=== PATIENT | male | born 1960 | race Caucasian/White ===

== ENCOUNTER 2018-01-08 11:24 | Emergency (ER) | payer MEDICAID ==
[~2018-01-08] VITALS: Ht 167.6 cm; Wt 74.2 kg
[~2018-01-08 11:24] MED LIST: ASPI-1264 PO; BUPR-47 PO; CALC600T18 PO; CLON-527 PO; CLOP75TA35 PO; ERGO500014 PO; EZET10TA13 PO; NIA500ERT PO; NORCO10T PO; OMEP-84 PO; SIMV10TA2 PO; TEG100T PO
[2018-01-08 11:48] VITALS: BP 140/76
== END 2018-01-08 13:59 | disposition home or self-care (01) ==
LOC: ER 11:24
DX: I73.9 Peripheral vascular disease, unspecified (principal); I10 Essential (primary) hypertension; E78.00 Pure hypercholesterolemia, unspecified; E11.51 Type 2 diabetes mellitus with diabetic peripheral angiopathy without gangrene; K21.9 Gastro-esophageal reflux disease without esophagitis; Z86.718 Personal history of other venous thrombosis and embolism; Z86.73 Personal history of transient ischemic attack (TIA), and cerebral infarction without residual deficits; Z88.5 Allergy status to narcotic agent; Z79.82 Long term (current) use of aspirin; Z79.02 Long term (current) use of antithrombotics/antiplatelets; Z79.899 Other long term (current) drug therapy; Z98.890 Other specified postprocedural states; Z60.2 Problems related to living alone
CPT/HCPCS: 99281

== ENCOUNTER 2019-07-13 20:19 | Emergency (ER) | payer MEDICAID ==
[~2019-07-13] VITALS: Ht 167.6 cm; Wt 81.0 kg
[~2019-07-13 20:19] MED LIST changes: -EZET10TA13 PO; +ZET10T PO
[2019-07-13] MEDS ORDERED: CYCL-1 PO (23:23)
[2019-07-13] MEDS ORDERED: HYDROcodone/acetaminophen 5mg/325mg tablet PO ONE (23:25)
[2019-07-13] MEDS ORDERED: ketorolac trometh inj. 60 MG/2 ML VIAL IM ONE (23:25)
[2019-07-13] MEDS ORDERED: orphenadrine citrate 60mg/2ml inj. IM ONE (23:25)
[2019-07-14 00:05] VITALS: BP 145/75
== END 2019-07-14 00:06 | disposition home or self-care (01) ==
LOC: ER 20:20
DX: M54.41 Lumbago with sciatica, right side (principal); M54.42 Lumbago with sciatica, left side; G89.29 Other chronic pain; M62.830 Muscle spasm of back; E78.00 Pure hypercholesterolemia, unspecified; I10 Essential (primary) hypertension; K21.9 Gastro-esophageal reflux disease without esophagitis; E11.9 Type 2 diabetes mellitus without complications; Z86.73 Personal history of transient ischemic attack (TIA), and cerebral infarction without residual deficits; Z86.718 Personal history of other venous thrombosis and embolism; Z95.5 Presence of coronary angioplasty implant and graft; Z98.890 Other specified postprocedural states; Z88.5 Allergy status to narcotic agent; Z79.82 Long term (current) use of aspirin; Z79.899 Other long term (current) drug therapy
CPT/HCPCS: 72100; 96372; 99283; J1885; J2360

== ENCOUNTER 2023-10-21 13:21 | Inpatient (IN) | payer MEDICAID ==
[~2023-10-21] VITALS: Ht 167.6 cm; Wt 80.5 kg
[~2023-10-21 13:21] MED LIST changes: +CLOP75TA34 PO; -CLOP75TA35 PO; +CYCL-1 PO; +EZET10TA7 PO; +SIMV-341 PO; -SIMV10TA2 PO; -ZET10T PO
[2023-10-21 14:41] LABS: BASOPHILS % (AUTO) 0.5 % (0-1); EOSINOPHILS # (AUTO) 0.3 X10'3 (0-0.9); EOSINOPHILS % (AUTO) 4.4 % (0-6); HEMATOCRIT 45.4 % (42.0-52.0); HEMOGLOBIN 15.2 g/dl (14.0-17.9); LYMPHOCYTES # (AUTO) 1.2 X10'3 (1.1-4.8); MEAN CORPUSCULAR HEMOGLOBIN 31.6 PG (27.0-31.0); MEAN CORPUSCULAR HGB CONC 33.5 g/dL (33.0-36.5); MEAN CORPUSCULAR VOLUME 94.3 FL (78-98); MEAN PLATELET VOLUME 8.1 FL (7.4-10.4); MONOCYTES # (AUTO) 0.3 X10'3 (0-0.9); MONOCYTES % (AUTO) 5.7 % (2-12); NEUTROPHILS # (AUTO) 4.1 X10'3 (1.8-7.7); NEUTROPHILS % (AUTO) 69.4 % (42-75); PLATELET COUNT 223 X10'3 (140-440); RED BLOOD COUNT 4.81 X10'6 (4.70-6.10); RED CELL DISTRIBUTION WIDTH 13.4 % (11.5-14.5); WHITE BLOOD COUNT 5.9 X10'3 (4.5-11.0)
[2023-10-21 14:46] LABS: APTT 25 SECONDS (22-32)
[2023-10-21 14:55] LABS: ETHANOL < 10 MG/DL (<10); MAGNESIUM 2.5 MG/DL (1.5-2.4); PRO BRAIN NATRIURETIC PEPTIDE 235 PG/ML (0-125)
[2023-10-21 16:45] LABS: ALANINE AMINOTRANSFERASE 23 U/L (12-78); ALBUMIN 4.3 G/DL (3.4-5.0); ALBUMIN/GLOBULIN RATIO 1.1 (1.1-1.5); ALKALINE PHOSPHATASE 74 IU/L (46-116); ANION GAP 13 (8-16); ASPARTATE AMINO TRANSFERASE 36 U/L (10-37); BILIRUBIN,TOTAL 1.2 MG/DL (0.1-1.0); BLOOD UREA NITROGEN 19 MG/DL (7-18); BUN/CREATININE RATIO 14.5 (10.0-20.0); CALCIUM 9.4 MG/DL (8.5-10.1); CHLORIDE 101 MMOL/L (99-107); CREATINE KINASE 233 U/L (39-308); CREATININE 1.31 MG/DL (0.60-1.10); GLUCOSE 82 MG/DL (70-104); POTASSIUM 4.2 MMOL/L (3.5-5.1); SODIUM 140 MMOL/L (135-145); TOTAL CARBON DIOXIDE 26.1 MMOL/L (24-32); TOTAL PROTEIN 8.1 G/DL (6.4-8.2); eCRCL 53 ML/MIN; eGFR 56 ML/MIN
[2023-10-21] MEDS ORDERED: normal saline 1000ML IV soln IVB ONE (17:45)
[2023-10-21] MEDS ORDERED: TETanus/Pertussis (Acell)/Diphther VAC/PF (Tdap-Adult) 0.5ml syringe IMVAC ONE (17:55)
[2023-10-21 18:38] LABS: BILIRUBIN,URINE SMALL (Neg); CLARITY,URINE CLEAR (Clear); COLOR,URINE AMBER (Yellow); GLUCOSE, URINE NEGATIVE (Neg); KETONES,URINE 15 mg/dl (Neg); LEUKOCYTE ESTERASE ,URINE NEGATIVE (Neg); NITRITES, URINE NEGATIVE (Neg); OCCULT BLOOD,URINE SMALL (Neg); PH,URINE 5.5 (4.8-8.0); PROTEIN,URINE 100 mg/dl (Neg)
[2023-10-21 18:39] LABS: UA COLLECTION TYPE CLN CATCH MIDSTREAM
[2023-10-21 18:51] LABS: MUCUS STRANDS FEW /LPF (Neg); SQUAMOUS EPITHELIAL CELL,UR NONE SEEN /LPF (FEW)
[2023-10-21 18:53] LABS: BACTERIA,URINE FEW /HPF (Neg); RBC,URINE 0-2 /HPF (0-2); WBC,URINE 0-4 /HPF (0-4)
[2023-10-21 18:57] LABS: URINE AMPHETAMINE SCREEN NEGATIVE (Neg); URINE BARBITUATE SCREEN NEGATIVE (Neg); URINE BENZODIAZEPINES SCREEN POSITIVE (Neg); URINE CANNABINOID SCREEN POSITIVE (Neg); URINE COCAINE SCREEN NEGATIVE (Neg); URINE METHADONE SCREEN NEGATIVE (Neg); URINE OPIATE SCREEN NEGATIVE (Neg); URINE PHENCYCLIDINE SCREEN NEGATIVE (Neg)
[2023-10-21] MEDS ORDERED: temazepam 15mg capsule PO PRN (21:00)
[2023-10-21] MEDS ORDERED: ondansetron/PF 4mg/2ml inj IV PRN (22:00)
[2023-10-21] MEDS ORDERED: diphenhydrAMINE 25mg capsule PO PRN (22:00)
[2023-10-21] MEDS ORDERED: acetaminophen 325mg tablet PO PRN ×2 (22:00)
[2023-10-21] MEDS ORDERED: magnesium hydroxide 30ml (MOM) UD suspension PO PRN (22:00)
[2023-10-21] MEDS ORDERED: bisacodyl 10mg suppository rectal RC PRN (22:00)
[2023-10-21] MEDS ORDERED: HYDROcodone/acetaminophen 5mg/325mg tablet PO PRN (22:00)
[2023-10-21] MEDS ORDERED: mag hydrox/Alum hydrox/simeth 30ml oral suspension PO PRN (22:00)
[2023-10-21] MEDS ORDERED: diphenhydrAMINE 50 mg/ml inj IV PRN (22:00)
[2023-10-21 22:46] LABS: HEMOGLOBIN A1C 5.4 % (4.5-6.2)
[2023-10-21 23:01] LABS: LIPASE 35 U/L (16-77); PHOSPHORUS 3.7 MG/DL (2.3-4.5); THYROID STIMULATING HORMONE 1.68 ulU/ml (0.34-4.50)
[2023-10-21 23:03] LABS: CARBAMAZEPINE (TEGRETOL) < 0.5 UG/ML (4.0-12.0)
[2023-10-21 23:56] LABS: APTT 25 SECONDS (22-32); D-DIMER 0.51 MG/L FEU (0-0.50); PROTHROMBIN TIME 10.9 SECONDS (9.0-12.0)
[2023-10-22] MEDS: normal saline 1000ml 1,000 ML IV SCH ×4 (00:15→20:35)
[2023-10-22 00:51] VITALS: RESP 18; O2SAT 97
[2023-10-22 01:00] VITALS: BP 130/53; PULSE 58; RESP 13; TEMP 97.5; O2SAT 97
[2023-10-22 06:00] VITALS: BP 109/94; PULSE 50; RESP 18; TEMP 97.2; O2SAT 94
[2023-10-22 06:02] LABS: BASOPHILS % (AUTO) 0.6 % (0-1); EOSINOPHILS # (AUTO) 0.3 X10'3 (0-0.9); EOSINOPHILS % (AUTO) 4.7 % (0-6); HEMATOCRIT 38.2 % (42.0-52.0); LYMPHOCYTES # (AUTO) 2.1 X10'3 (1.1-4.8); MEAN CORPUSCULAR HEMOGLOBIN 31.7 PG (27.0-31.0); MEAN CORPUSCULAR HGB CONC 34.1 g/dL (33.0-36.5); MEAN CORPUSCULAR VOLUME 93.1 FL (78-98); MONOCYTES # (AUTO) 0.6 X10'3 (0-0.9); NEUTROPHILS # (AUTO) 3.9 X10'3 (1.8-7.7); NEUTROPHILS % (AUTO) 55.7 % (42-75); PLATELET COUNT 193 X10'3 (140-440); RED CELL DISTRIBUTION WIDTH 12.7 % (11.5-14.5)
[2023-10-22 06:09] LABS: ALANINE AMINOTRANSFERASE 18 U/L (12-78); ALBUMIN 3.2 G/DL (3.4-5.0); ALBUMIN/GLOBULIN RATIO 1.1 (1.1-1.5); ALKALINE PHOSPHATASE 55 IU/L (46-116); ANION GAP 9 (8-16); ASPARTATE AMINO TRANSFERASE 27 U/L (10-37); BILIRUBIN,TOTAL 0.8 MG/DL (0.1-1.0); BLOOD UREA NITROGEN 21 MG/DL (7-18); BUN/CREATININE RATIO 18.8 (10.0-20.0); CALCIUM 8.3 MG/DL (8.5-10.1); CHLORIDE 104 MMOL/L (99-107); CREATININE 1.12 MG/DL (0.60-1.10); GLUCOSE 102 MG/DL (70-104); POTASSIUM 3.6 MMOL/L (3.5-5.1); SODIUM 139 MMOL/L (135-145); TOTAL CARBON DIOXIDE 26.1 MMOL/L (24-32); TOTAL PROTEIN 6.2 G/DL (6.4-8.2); eCRCL 63 ML/MIN; eGFR 67 ML/MIN
[2023-10-22 06:14] LABS: CHOL/HDL RATIO 2.3 (0.00-4.99); CHOLESTEROL 93 MG/DL (0-200); HDL CHOLESTEROL 40 MG/DL (35-60); LDL CHOLESTEROL 33 MG/DL (50-100); TRIGLYCERIDES 154 MG/DL (20-135)
[2023-10-22] MEDS: docusate sod 100mg capsule PO SCH ×2 (07:21→20:21)
[2023-10-22] MEDS: heparin, porcine 5000 units/ml vial SQ SCH ×2 (07:22→20:21)
[2023-10-22 10:00] VITALS: BP 120/66; PULSE 52; RESP 14; TEMP 97.7; O2SAT 96
[2023-10-22] MEDS ORDERED: pneumococcal 23-VAL P-sac vacc 25 mcg/0.5ml vial IMVAC ONE (10:00)
[2023-10-22] MEDS ORDERED: LOSA25TA41 PO (12:25)
[2023-10-22] MEDS ORDERED: ASPI-1265 PO (12:26)
[2023-10-22] MEDS ORDERED: GABA-530 PO (12:29)
[2023-10-22 18:40] VITALS: BP 124/55; PULSE 67; RESP 15; TEMP 98.2; O2SAT 98
[2023-10-22 22:00] VITALS: BP 171/92; PULSE 58; RESP 16; TEMP 97.7; O2SAT 99
[2023-10-22] MEDS: HYDROcodone/acetaminophen 10/325mg tab PO PRN (22:50)
[2023-10-23 06:00] VITALS: BP 118/55; PULSE 54; RESP 16; TEMP 97.8
[2023-10-23 06:26] LABS: BASOPHILS % (AUTO) 0.8 % (0-1); EOSINOPHILS # (AUTO) 0.3 X10'3 (0-0.9); HEMATOCRIT 37.5 % (42.0-52.0); HEMOGLOBIN 12.7 g/dl (14.0-17.9); LYMPHOCYTES # (AUTO) 1.8 X10'3 (1.1-4.8); LYMPHOCYTES % (AUTO) 32.2 % (21-51); MEAN CORPUSCULAR HEMOGLOBIN 31.7 PG (27.0-31.0); MEAN CORPUSCULAR VOLUME 93.2 FL (78-98); MEAN PLATELET VOLUME 7.6 FL (7.4-10.4); MONOCYTES # (AUTO) 0.5 X10'3 (0-0.9); MONOCYTES % (AUTO) 8.1 % (2-12); NEUTROPHILS % (AUTO) 53.9 % (42-75); PLATELET COUNT 172 X10'3 (140-440); RED BLOOD COUNT 4.02 X10'6 (4.70-6.10); RED CELL DISTRIBUTION WIDTH 12.8 % (11.5-14.5); WHITE BLOOD COUNT 5.6 X10'3 (4.5-11.0)
[2023-10-23 06:38] LABS: ALANINE AMINOTRANSFERASE 15 U/L (12-78); ALBUMIN 3.2 G/DL (3.4-5.0); ALBUMIN/GLOBULIN RATIO 1.1 (1.1-1.5); ALKALINE PHOSPHATASE 52 IU/L (46-116); ANION GAP 9 (8-16); ASPARTATE AMINO TRANSFERASE 27 U/L (10-37); BILIRUBIN,TOTAL 0.9 MG/DL (0.1-1.0); BLOOD UREA NITROGEN 14 MG/DL (7-18); BUN/CREATININE RATIO 13.9 (10.0-20.0); CALCIUM 8.6 MG/DL (8.5-10.1); CHLORIDE 105 MMOL/L (99-107); CREATININE 1.01 MG/DL (0.60-1.10); GLUCOSE 75 MG/DL (70-104); SODIUM 139 MMOL/L (135-145); TOTAL CARBON DIOXIDE 25.1 MMOL/L (24-32); TOTAL PROTEIN 6.1 G/DL (6.4-8.2); eCRCL 69 ML/MIN; eGFR 75 ML/MIN
[2023-10-23 08:00] VITALS: RESP 16; O2SAT 98
[2023-10-23] MEDS: docusate sod 100mg capsule PO SCH ×2 (08:08→20:18)
[2023-10-23] MEDS: heparin, porcine 5000 units/ml vial SQ SCH ×2 (08:08→20:21)
[2023-10-23] MEDS: HYDROcodone/acetaminophen 10/325mg tab PO PRN ×2 (10:05→16:06)
[2023-10-23] MEDS: normal saline 1000ml 1,000 ML IV SCH ×2 (12:57→23:24)
[2023-10-23] MEDS ORDERED: cyclobenzaprine 10mg tablet PO PRN (13:55)
[2023-10-23] MEDS ORDERED: HYDROcodone/acetaminophen 10/325mg tab PO PRN (13:55)
[2023-10-23 14:57] LABS: BASOPHILS % (AUTO) 0.5 % (0-1); EOSINOPHILS # (AUTO) 0.1 X10'3 (0-0.9); EOSINOPHILS % (AUTO) 1.8 % (0-6); HEMATOCRIT 40.7 % (42.0-52.0); HEMOGLOBIN 13.7 g/dl (14.0-17.9); LYMPHOCYTES # (AUTO) 1.1 X10'3 (1.1-4.8); LYMPHOCYTES % (AUTO) 16.8 % (21-51); MEAN CORPUSCULAR HEMOGLOBIN 31.4 PG (27.0-31.0); MEAN CORPUSCULAR HGB CONC 33.7 g/dL (33.0-36.5); MEAN CORPUSCULAR VOLUME 93.2 FL (78-98); MEAN PLATELET VOLUME 7.5 FL (7.4-10.4); MONOCYTES # (AUTO) 0.4 X10'3 (0-0.9); MONOCYTES % (AUTO) 5.9 % (2-12); PLATELET COUNT 181 X10'3 (140-440); RED BLOOD COUNT 4.37 X10'6 (4.70-6.10); RED CELL DISTRIBUTION WIDTH 12.7 % (11.5-14.5); WHITE BLOOD COUNT 6.7 X10'3 (4.5-11.0)
[2023-10-23] MEDS: gabapentin 100mg capsule PO SCH ×2 (16:05→23:25)
[2023-10-23] MEDS ORDERED: ondansetron 4mg rapidly disintigrating tab PO PRN (16:15)
[2023-10-23 18:00] VITALS: BP 163/60; PULSE 55; RESP 20; TEMP 97.5; O2SAT 96
[2023-10-23] MEDS: clonazePAM 1mg tablet PO SCH (20:16)
[2023-10-23] MEDS ORDERED: carBAMazepine 100mg chewable tablet PO SCH (21:00)
[2023-10-23] MEDS ORDERED: aspirin 81mg tab.chew PO SCH (21:00)
[2023-10-23] MEDS ORDERED: atorvastatin 10mg tablet PO SCH (21:00)
[2023-10-23 22:00] VITALS: BP 135/60; PULSE 54; RESP 16; TEMP 98.3; O2SAT 97
[2023-10-24 06:12] LABS: BASOPHILS % (AUTO) 0.5 % (0-1); EOSINOPHILS # (AUTO) 0.3 X10'3 (0-0.9); EOSINOPHILS % (AUTO) 5.4 % (0-6); HEMATOCRIT 36.8 % (42.0-52.0); HEMOGLOBIN 12.6 g/dl (14.0-17.9); LYMPHOCYTES # (AUTO) 1.8 X10'3 (1.1-4.8); LYMPHOCYTES % (AUTO) 35.2 % (21-51); MEAN CORPUSCULAR HEMOGLOBIN 31.8 PG (27.0-31.0); MEAN CORPUSCULAR HGB CONC 34.3 g/dL (33.0-36.5); MEAN CORPUSCULAR VOLUME 92.8 FL (78-98); MEAN PLATELET VOLUME 7.6 FL (7.4-10.4); MONOCYTES # (AUTO) 0.5 X10'3 (0-0.9); MONOCYTES % (AUTO) 9.8 % (2-12); NEUTROPHILS # (AUTO) 2.5 X10'3 (1.8-7.7); NEUTROPHILS % (AUTO) 49.1 % (42-75); PLATELET COUNT 177 X10'3 (140-440); RED BLOOD COUNT 3.97 X10'6 (4.70-6.10); RED CELL DISTRIBUTION WIDTH 13.2 % (11.5-14.5)
[2023-10-24 06:32] LABS: ALANINE AMINOTRANSFERASE 17 U/L (12-78); ALBUMIN 3.3 G/DL (3.4-5.0); ALBUMIN/GLOBULIN RATIO 1.1 (1.1-1.5); ALKALINE PHOSPHATASE 51 IU/L (46-116); ANION GAP 8 (8-16); ASPARTATE AMINO TRANSFERASE 31 U/L (10-37); BILIRUBIN,TOTAL 0.7 MG/DL (0.1-1.0); BLOOD UREA NITROGEN 11 MG/DL (7-18); BUN/CREATININE RATIO 11.5 (10.0-20.0); CALCIUM 8.6 MG/DL (8.5-10.1); CARBAMAZEPINE (TEGRETOL) < 0.5 UG/ML (4.0-12.0); CHLORIDE 106 MMOL/L (99-107); CREATININE 0.96 MG/DL (0.60-1.10); GLUCOSE 88 MG/DL (70-104); POTASSIUM 3.9 MMOL/L (3.5-5.1); SODIUM 140 MMOL/L (135-145); TOTAL CARBON DIOXIDE 26.5 MMOL/L (24-32); TOTAL PROTEIN 6.3 G/DL (6.4-8.2); eCRCL 73 ML/MIN; eGFR 80 ML/MIN
[2023-10-24 06:47] VITALS: BP 128/66; PULSE 60; RESP 16; TEMP 97.7; O2SAT 97
[2023-10-24] MEDS ORDERED: pantoprazole 40mg Tablet.DR PO SCH (07:30)
[2023-10-24 08:00] VITALS: RESP 17; O2SAT 98
[2023-10-24] MEDS ORDERED: ezetimibe 10mg tablet PO SCH (08:00)
[2023-10-24] MEDS ORDERED: niacin 500mg ER (Niaspan) tablet PO SCH (08:00)
[2023-10-24] MEDS: docusate sod 100mg capsule PO SCH (08:00)
[2023-10-24] MEDS ORDERED: calcium carbonate 500mg tablet PO SCH (08:00)
[2023-10-24] MEDS ORDERED: losartan 25mg tablet PO SCH (08:00)
[2023-10-24] MEDS ORDERED: aspirin 325mg tablet PO SCH (08:00)
[2023-10-24] MEDS ORDERED: clopidogrel 75mg tablet PO SCH (08:00)
[2023-10-24] MEDS ORDERED: buPROPion SR 150mg tablet PO SCH (08:00)
[2023-10-24] MEDS: heparin, porcine 5000 units/ml vial SQ SCH (08:00)
[2023-10-24] MEDS: clonazePAM 1mg tablet PO SCH (09:28)
[2023-10-24] MEDS: HYDROcodone/acetaminophen 10/325mg tab PO PRN (09:28)
[2023-10-24] MEDS: normal saline 1000ml 1,000 ML IV SCH (10:00)
[2023-10-24 10:30] VITALS: BP 139/70; PULSE 62; RESP 18; TEMP 97.3; O2SAT 97
[2023-10-24] MEDS: gabapentin 100mg capsule PO SCH ×2 (13:09→16:00)
== END 2023-10-24 18:35 | disposition home or self-care (01) | DRG 469 ==
LOC: ER 13:22 → ED HOLD 22:08 → ORTHO 4S 10-22 00:07
PROVIDERS: ADMIT Family Medicine; ATTEND Internal Medicine
DX: N17.9 Acute kidney failure, unspecified (principal); I50.33 Acute on chronic diastolic (congestive) heart failure; E11.51 Type 2 diabetes mellitus with diabetic peripheral angiopathy without gangrene; E11.22 Type 2 diabetes mellitus with diabetic chronic kidney disease; E86.0 Dehydration; G40.909 Epilepsy, unspecified, not intractable, without status epilepticus; E78.00 Pure hypercholesterolemia, unspecified; G89.4 Chronic pain syndrome; F41.9 Anxiety disorder, unspecified; F32.A Depression, unspecified; I25.10 Atherosclerotic heart disease of native coronary artery without angina pectoris; M48.02 Spinal stenosis, cervical region; I13.0 Hypertensive heart and chronic kidney disease with heart failure and stage 1 through stage 4 chronic kidney disease, or unspecified chronic kidney disease; N18.9 Chronic kidney disease, unspecified; K21.9 Gastro-esophageal reflux disease without esophagitis; Z86.73 Personal history of transient ischemic attack (TIA), and cerebral infarction without residual deficits; Z86.718 Personal history of other venous thrombosis and embolism; Z95.5 Presence of coronary angioplasty implant and graft; Z79.01 Long term (current) use of anticoagulants; Z79.899 Other long term (current) drug therapy; Z79.82 Long term (current) use of aspirin; Z88.5 Allergy status to narcotic agent; Z87.442 Personal history of urinary calculi
CPT/HCPCS: 36415; 70450; 70551; 71045; 72125; 80053; 80061; 80156; 80305; 80320; 81001; 82550; 83036; 83690; 83735; 83880; 84100; 84443; 84484; 85025; 85379; 85610; 85730; 87081; 90471; 90715; 90732; 93005; 93306; 93880; 96360; 97110; 97161; 97530; 99285; G0378; J1644; J7030

== ENCOUNTER 2024-12-25 06:30 | Emergency (ER) | payer MEDICAID ==
[~2024-12-25] VITALS: Ht 167.6 cm; Wt 124.3 kg
[~2024-12-25 06:30] MED LIST changes: -ASPI-1264 PO; +ASPI-1265 PO; +GABA-530 PO; +LOSA25TA41 PO
[2024-12-25 07:02] LABS: BASOPHILS # (AUTO) 0.1 X10'3 (0-0.2); BASOPHILS % (AUTO) 0.4 % (0-1); EOSINOPHILS # (AUTO) 0.4 X10'3 (0-0.9); EOSINOPHILS % (AUTO) 3.3 % (0-6); HEMATOCRIT 42.5 % (42.0-52.0); HEMOGLOBIN 14.3 g/dl (14.0-17.9); LYMPHOCYTES % (AUTO) 14.5 % (21-51); MEAN CORPUSCULAR HEMOGLOBIN 31.7 PG (27.0-31.0); MEAN CORPUSCULAR HGB CONC 33.7 g/dL (33.0-36.5); MEAN CORPUSCULAR VOLUME 94.1 FL (78-98); MEAN PLATELET VOLUME 7.8 FL (7.4-10.4); MONOCYTES # (AUTO) 0.8 X10'3 (0-0.9); MONOCYTES % (AUTO) 5.6 % (2-12); NEUTROPHILS # (AUTO) 10.4 X10'3 (1.8-7.7); NEUTROPHILS % (AUTO) 76.2 % (42-75); PLATELET COUNT 232 X10'3 (140-440); RED BLOOD COUNT 4.52 X10'6 (4.70-6.10); RED CELL DISTRIBUTION WIDTH 12.6 % (11.5-14.5); WHITE BLOOD COUNT 13.7 X10'3 (4.5-11.0)
[2024-12-25 07:10] LABS: APTT 28 SECONDS (22-32); INR 1.1 INR; PROTHROMBIN TIME 11.4 SECONDS (9.0-12.0)
[2024-12-25 07:13] LABS: ALANINE AMINOTRANSFERASE 40 U/L (12-78); ALBUMIN 3.9 G/DL (3.4-5.0); ALKALINE PHOSPHATASE 86 IU/L (46-116); ANION GAP 11 (8-16); ASPARTATE AMINO TRANSFERASE 48 U/L (10-37); BILIRUBIN,TOTAL 1.1 MG/DL (0.1-1.0); BLOOD UREA NITROGEN 17 MG/DL (7-18); BUN/CREATININE RATIO 16.7 (10.0-20.0); CALCIUM 8.5 MG/DL (8.5-10.1); CHLORIDE 106 MMOL/L (99-107); CREATININE 1.02 MG/DL (0.60-1.10); GLUCOSE 122 MG/DL (70-104); POTASSIUM 3.5 MMOL/L (3.5-5.1); SODIUM 144 MMOL/L (135-145); TOTAL CARBON DIOXIDE 27.2 MMOL/L (24-32); TOTAL PROTEIN 7.8 G/DL (6.4-8.2); eCRCL 68 ML/MIN; eGFR 74 ML/MIN
[2024-12-25 07:21] VITALS: TEMP 97.7
[2024-12-25 07:21] LABS: PRO BRAIN NATRIURETIC PEPTIDE 44 PG/ML (0-125)
[2024-12-25 07:29] VITALS: BP 129/65; PULSE 77; RESP 13; O2SAT 96
== END 2024-12-25 09:41 | disposition left against medical advice (07) ==
LOC: ER 06:30
DX: S09.90XA Unspecified injury of head, initial encounter (principal); E11.9 Type 2 diabetes mellitus without complications; E78.00 Pure hypercholesterolemia, unspecified; F32.A Depression, unspecified; F41.9 Anxiety disorder, unspecified; I10 Essential (primary) hypertension; Z86.73 Personal history of transient ischemic attack (TIA), and cerebral infarction without residual deficits; Z87.440 Personal history of urinary (tract) infections; Z98.890 Other specified postprocedural states; Z79.82 Long term (current) use of aspirin; W19.XXXA Unspecified fall, initial encounter; Y93.89 Activity, other specified; Y92.89 Other specified places as the place of occurrence of the external cause; Y99.8 Other external cause status
CPT/HCPCS: 36415; 70450; 72125; 80053; 83880; 85025; 85610; 85730; 99284